=== PATIENT | male | born 1985 | race Caucasian/White ===

== ENCOUNTER → 2017-09-30 07:50 | Outpatient (CLI) | payer MEDICARE, MEDICAID ==
[2017-09-30 09:11] LABS: ALBUMIN 4.4 g/dL (3.4-5.0); BILIRUBIN - DIRECT 0.11 mg/dL (0.00-0.30); BILIRUBIN - INDIRECT 0.49 mg/dL (0.00-1.00); BILIRUBIN - TOTAL 0.6 mg/dL (0.2-1.3); PROTEIN - SERUM 7.6 g/dL (6.4-8.2)
== END | disposition home or self-care (01) ==
LOC: D.LAB 07:50 → D.NM 08:30
PROVIDERS: Internal Medicine Gastroenterology
DX: K31.7 Polyp of stomach and duodenum (principal); K29.80 Duodenitis without bleeding; K22.10 Ulcer of esophagus without bleeding; K29.70 Gastritis, unspecified, without bleeding